=== PATIENT | female | born 1980 | race Two or more races ===

== ENCOUNTER 2016-09-07 11:20 | Emergency (ER) | payer MEDICAID ==
[~2016-09-07] VITALS: Ht 170.2 cm; Wt 90.3 kg
[2016-09-07 12:59] LABS: microscopic required? YES; urine erythrocyte NEGATIVE (NEGATIVE)
[2016-09-07 14:07] VITALS: BP 108/74
== END 2016-09-07 14:07 | disposition home or self-care (01) ==
LOC: ED 11:20
PROVIDERS: Emergency Medicine
DX: N39.0 Urinary tract infection, site not specified (principal); Z88.0 Allergy status to penicillin
CPT/HCPCS: 36415